=== PATIENT | male | born 1950 | race Hispanic/Latino ===

== ENCOUNTER → 2019-05-10 | Outpatient (CLI) | payer MEDICARE ==
[~2019-05-10] MED LIST: AZITHROMYCIN250 MG PO; SIMVASTATIN20 MG PO
== END ==
LOC: SLEEP 20:35
PROVIDERS: ATTEND Internal Medicine
DX: R40.0 Somnolence (principal); E78.5 Hyperlipidemia, unspecified
CPT/HCPCS: 95810

== ENCOUNTER → 2019-12-18 | Outpatient (CLI) | payer MEDICARE ==
--- NOTE | 2019-12-18 10:25 | Diagnostic Imaging Report ---
TECHNIQUE: Magnetic resonance imaging of the LEFT KNEE was performed WITHOUT injected contrast. HISTORY: Left knee pain COMPARISON: None available. FINDINGS: LIGAMENTS AND TENDONS: ACL: Intact PCL: Intact Collateral ligaments: Intact Iliotibial band: Unremarkable Popliteal tendon: Intact Extensor mechanism: Intact JOINT: Menisci: Medial: Complex tearing of the body and posterior horn with dominant radial component sagittal image 28 and axial image 19. Meniscal extrusion Lateral: Degenerative signal without discrete tear. Articular Cartilage: Medial Compartment: High-grade cartilage loss with areas of full-thickness fissuring involving the weightbearing medial femoral condyle. Lateral Compartment: No focal defect. Patellofemoral Compartment: No focal defect. Joint Fluid: Moderate joint effusion. Ruptured Ronquillo's cyst cyst. BONE: No acute fracture. SOFT TISSUES: Otherwise, unremarkable. IMPRESSION: Medial meniscus complex tearing with dominant radial component to the posterior body/horn results in extrusion and diffuse high-grade cartilage loss of the medial compartment. Joint effusion with ruptured Ronquillo's cyst. Signed by: Dr. Chintan Oseguera M.D. on 12/18/2019 10:22 AM
== END ==
LOC: MRI 09:01
PROVIDERS: ATTEND Specialist
DX: S83.242A Other tear of medial meniscus, current injury, left knee, initial encounter (principal)

== ENCOUNTER → 2020-01-02 | Day surgery (SDC) | payer MEDICARE, OTHER ==
[2019-12-29 11:33] LABS: BASOPHILS % 0.3 % (0.0-1.0); EOSINOPHILS # (AUTO) 0.1 (0.0-0.4); EOSINOPHILS % 1.5 % (0.0-6.0); HEMATOCRIT 46.6 % (38.2-49.6); HEMOGLOBIN 16.1 g/dL (14.0-18.0); LYMPHOCYTES # (AUTO) 1.4 (1.0-3.2); LYMPHOCYTES % 22.9 % (18.0-39.1); MEAN CORPUSCULAR HEMOGLOBIN 31.4 pg (28-32); MEAN CORPUSCULAR HGB CONC 34.5 g/dL (31-35); MONOCYTES # (AUTO) 0.6 (0.2-0.8); MONOCYTES % 10.6 % (4.4-11.3); NEUTROPHILS # (AUTO) 3.8 (2.1-6.9); NEUTROPHILS % 63.5 % (38.7-80.0); PLATELET COUNT 161 x10e3/uL (140-360); RED BLOOD COUNT 5.12 x10e6/uL (4.3-5.7); RED CELL DISTRIBUTION WIDTH 12.7 % (11.7-14.4)
--- NOTE | 2019-12-29 12:14 | Diagnostic Imaging Report ---
EXAMINATION: CHEST 2 VIEWS INDICATION: Pre-operative COMPARISON: None FINDINGS: LINES/TUBES:None LUNGS:The lungs are well-inflated. No focal consolidation or pulmonary edema. PLEURA:No pleural effusion or pneumothorax. MEDIASTINUM:The cardiomediastinal silhouette appears normal in size and shape. BONES/SOFT TISSUES:No acute osseous injury. ABDOMEN:No free air under the diaphragm. IMPRESSION: No focal pneumonia or pulmonary edema. Signed by: Ethel Charles MD on 12/29/2019 12:10 PM
[~2020-01-02] MED LIST changes: +CLINDAMYCIN 600MG / 50ML 50 ML IV ONE; +FENTANYL CITRATE/PF 100MCG/2 ML INJ ONE; +HYDRALAZINE HCL 20 MG/ML VIAL ONE; +LIDOCAINE HCL 2% LOCAL INJ 5 ML SDV VIAL INJ ONE; +LIPITOR10 MG PO; +MIDAZOLAM HCL 2 MG/2 ML VIAL ONE; +ONDANSETRON HCL INJ 2MG/ML 2ML 2 MG/ML VIAL ONE; +PROPOFOL IV EMULSION 10 MG/ML 20 ML VIAL ONE; +SEVOFLURANE INHAL SOLN 250 ML PEN BTL ONE
[2020-01-02 11:10] VITALS: BP 123/76
--- NOTE | 2020-01-02 13:34 | Operative Report ---
DATE OF PROCEDURE: 01/02/2020 SURGEON: Adryan Ledbetter MD HEMATOLOGY SUPERVISOR: Han Jensen PA-C. PREOPERATIVE DIAGNOSIS: Left knee medial meniscal tear. POSTOPERATIVE DIAGNOSES: 1. Left knee medial meniscal tear. 2. Chondromalacia of the medial femoral condyle. PROCEDURE: Left knee arthroscopy, partial medial meniscectomy, and chondroplasty of the medial femoral condyle. INDICATIONS: The patient is a 69-year-old gentleman, who has clinic signs and symptoms consistent with a degenerative tear of the medial meniscus. The findings and options have been discussed. The risks and benefits of arthroscopy have been explained. The possibility of persistent arthritic aching pain has been stressed. He states he understands and wishes to proceed. PROCEDURE IN DETAIL: The patient was brought to the operating room and placed under general anesthetic. His left lower extremity was prepped and draped in a sterile manner. A preoperative time-out was performed. A tourniquet placed in the upper thigh was inflated to 300 mmHg. Standard arthroscopy portals were established. The knee was insufflated with sterile saline and systematically inspected. The patellofemoral groove was well preserved. There was mild synovitis in the suprapatellar pouch. The medial and lateral gutters were inspected. There was some mild medial osteophyte formation. The medial compartment was inspected. There was a large radial tear of the posterior horn of the medial meniscus with a degenerative horizontal component associated. There was an area of grade 3 to grade 4 chondromalacia of the medial femoral condyle. The cruciate ligaments and lateral compartment were inspected and probed. There were no abnormalities. Attention was returned to the medial compartment. A combination of biting forceps and a mechanical shaver were used to debride the meniscus back to a stable margin. The unstable areas of degenerative chondromalacia of the medial femoral condyle were also debrided back to stable margins. The knee was thoroughly irrigated. The arthroscopic instruments were removed. The portal incisions were closed with nylon stitches. A sterile bandage was applied. The patient was extubated and transported to the recovery room in stable condition. There was no blood loss and all needle and sponge counts were correct. Adryan Ledbetter MD DR/NURIA /[id number]
== END | disposition home or self-care (01) ==
LOC: OR 07:24
PROVIDERS: ATTEND Specialist
DX: S83.232A Complex tear of medial meniscus, current injury, left knee, initial encounter (principal); M94.262 Chondromalacia, left knee; M25.762 Osteophyte, left knee; G47.33 Obstructive sleep apnea (adult) (pediatric); E78.5 Hyperlipidemia, unspecified; X58.XXXA Exposure to other specified factors, initial encounter; Z88.0 Allergy status to penicillin; Z88.2 Allergy status to sulfonamides; Z01.810 Encounter for preprocedural cardiovascular examination; Z01.812 Encounter for preprocedural laboratory examination; Z01.818 Encounter for other preprocedural examination; Z11.59 Encounter for screening for other viral diseases; Z68.34 Body mass index [BMI] 34.0-34.9, adult; Z87.891 Personal history of nicotine dependence
CPT/HCPCS: 29881; 36415; 71046; 85025; 93005; J0360; J2001; J2250; J2405; J2704; J3010; U0002

== ENCOUNTER 2020-04-06 08:46 | Emergency (ER) | payer MEDICARE ==
[~2020-04-06] VITALS: Ht 175.3 cm; Wt 108.9 kg
[~2020-04-06 08:46] MED LIST changes: -CLINDAMYCIN 600MG / 50ML 50 ML IV ONE; -FENTANYL CITRATE/PF 100MCG/2 ML INJ ONE; -HYDRALAZINE HCL 20 MG/ML VIAL ONE; -LIDOCAINE HCL 2% LOCAL INJ 5 ML SDV VIAL INJ ONE; -MIDAZOLAM HCL 2 MG/2 ML VIAL ONE; -ONDANSETRON HCL INJ 2MG/ML 2ML 2 MG/ML VIAL ONE; -PROPOFOL IV EMULSION 10 MG/ML 20 ML VIAL ONE; -SEVOFLURANE INHAL SOLN 250 ML PEN BTL ONE
[2020-04-06] MEDS ORDERED: HYDROCODONE/APAP 5MG-325MG TAB PO ONE (09:15)
[2020-04-06] MEDS ORDERED: ACETAMINOPHEN 325 MG TAB PO ONE (09:15)
[2020-04-06] MEDS ORDERED: ONDANSETRON HCL 4 MG ORAL DISINTEGRATING TAB PO ONE (09:15)
[2020-04-06] MEDS ORDERED: ONDANSETRON ODT8 MG PO (09:40)
[2020-04-06] MEDS ORDERED: AZITHROMYCIN250 MG PO (09:40)
[2020-04-06] MEDS ORDERED: GUAIATUSSIN AC118 ML PO (09:40)
[2020-04-06 09:58] VITALS: BP 155/70
== END 2020-04-06 10:07 | disposition home or self-care (01) ==
LOC: ER 09:06
DX: U07.1 COVID-19 (principal); R50.9 Fever, unspecified; R05 Cough; R06.02 Shortness of breath; R11.0 Nausea; E78.5 Hyperlipidemia, unspecified; Z85.49 Personal history of malignant neoplasm of other male genital organs
CPT/HCPCS: 99283; Q0162